=== PATIENT | female | born 1980 | race Caucasian/White ===

== ENCOUNTER 2024-12-30 13:07 | Emergency (ER) | payer BC, SELFPAY ==
--- NOTE | 2024-12-30 | ECG_ITS ---
Test Reason : SEIZURE LIKE ACTIVITY Blood Pressure : */* mmHG Vent. Rate : 69 BPM Atrial Rate : 69 BPM P-R Int : 202 ms QRS Dur : 98 ms QT Int : 414 ms P-R-T Axes : 73 65 60 degrees QTcB Int : 443 ms Normal sinus rhythm Possible Left atrial enlargement Borderline ECG No previous ECGs available Referred By: Generic ED Physician Electronically Signed By: Talha Scott
[2024-12-30 13:09] VITALS: BP 107/65; PULSE 70; O2SAT 98
[2024-12-30 13:24] VITALS: BP 110/75; PULSE 86; RESP 16; TEMP 37; O2SAT 100; BMI 23.3
[2024-12-30 13:45] VITALS: BP 123/65; PULSE 69; RESP 14; TEMP 36.8; O2SAT 99
[2024-12-30 13:54] LABS: MANUAL DIFF FLAG NO
[2024-12-30 13:58] LABS: Hematocrit 34.2 % (37.0-47.0); Hemoglobin 11.5 g/dl (12.0-16.0); Imm Gran Abs Auto 0.02 X10*3/uL (0.00-0.03); Imm Gran Pct Auto 0.3 % (0.0-0.4); Lymphocytes Absolute Auto 0.5 X10*3/uL (1.2-4.9); Mean Corpuscular HGB Conc 33.6 g/dl (31.0-35.0); Mean Corpuscular Hemoglobin 30.7 pg (27.0-33.0); Mean Corpuscular Volume 91.4 fL (80.0-98.0); NRBC Abs Auto 0.000 X10*3/uL (0.0-0.012); NRBC Pct Auto 0.0 /100WBC (0.0-0.2); Platelet Count 161 X10*3/uL (160-400); Red Blood Count 3.74 X10*6/uL (4.20-5.50); White Blood Count 5.8 X10*3/uL (4.8-10.8)
--- NOTE | 2024-12-30 14:20 | ED_ITS ---
HPI - General Adult General Chief complaint: Weakness Stated complaint: SYNCOPE,?SZ,NO H/O SZ PER EMS Time Seen by Provider: 12/30/24 14:20 History of Present Illness ED Provider: Carroll HUBER narrative: The patient is an otherwise healthy 44-year-old woman. She has no significant past medical history. Her only medication is oral contraceptive. She has been feeling somewhat run down with cough and cold-type symptoms for about 2 or 3 days. Despite these symptoms she went to work today. While at work she did not feel very well and she left the office to go to her car. She thought she would try to take a nap in her car. She sat in her car with the air conditioning running. She called her to tell him that she was not feeling well. He suggested that perhaps she not returned to work. She then called her office. Apparently while she was trying to make the phone call she passed out and drop the phone. People from her office then ran out to check on her. She remembers hearing banging on the windshield when she woke up an open the door. The office makes were very concerned that she had passed out in the car and that they had had to bang on the windows to wake her up. They called 911 and she was brought to the hospital. There was no tongue biting. No incontinence. The patient denies any significant headache. No neck stiffness. No chest pain. No shortness of breath. No pain with breathing. No pain or swelling in her legs. Here in the emergency room she feels relatively well. Related Data Allergies Allergy/AdvReac Type Severity Reaction Status Date / Time No Known Allergies Allergy Verified 12/30/24 13:33 Review of Systems 2 Review of Systems: Yes all other systems are reviewed and are negative [facility] Social History Social History Advance Directives: No Advance Directives Information Provided: Yes Do you have a plan to hurt others: No Plan Physical Exam ED Vital Signs: Vital Signs - 24 hr 12/30/24 13:24 12/30/24 13:45 Temperature 98.6 F 98.3 F Pulse Rate 86 69 Respiratory Rate 16 14 Blood Pressure 110/75 123/65 Pulse Oximetry 100 99 Oxygen Delivery Method Room Air Room Air BMI result Body Mass Index 23.3 Const Other: The patient looks as if she is an ordinarily very healthy 44-year-old. She is awake, alert, pleasant, cooperative. She does not appear ill or in distress at all. Orientation/consciousness: patient oriented x3 HENCA Other: The face is symmetrical. ?Mucous membranes moist. Eyes Other: Pupils are round equal, conjunctivae are clear, extraocular movements intact Neck Other: Her neck is entirely supple. Neck: Yes normal visual inspection, Yes full ROM and Yes no meningeal signs Resp Effort & Inspection: normal respiratory effort Auscultation: clear to auscultation bilaterally Cardio Rate: regular rate Rhythm: regular rhythm Heart sounds: S1 normal heart sound present and S2 normal heart sound present GI Other: Abdomen is soft and nontender General: Yes no CVA tenderness Back/Spine/Pelvis Back: no CVA tenderness Skin Other: The skin is dry and unremarkable General skin exam: no rashes or lesions noted Neuro General: patient oriented x3, no meningeal signs, no focal motor deficits and CN's II-XI intact bilaterally Extrem Other: There is no calf swelling or tenderness. No asymmetry. No peripheral edema. Medical Decision Making Medical Decision Making [facility] Narrative: The patient is a 44-year-old woman who experienced what sounds like a syncopal episode while resting in her car. She has been feeling unwell for about 48 hours with very nonspecific respiratory symptoms. There was no tongue biting or incontinence to suggest a seizure was likely. She has no headache or neck stiffness to suggest any kind of acute intracranial process. She has no chest pain or shortness of breath or pleuritic pain to suggest a pulmonary embolism or cardiac process. Her EKGs unremarkable. Her vital signs are normal. The patient had basic labs done. Her COVID is positive. I think that the patient has COVID an that the COVID made her feel somewhat unwell and predispose her to a syncopal episode. My suspicion for a more ominous process is very low. She was told that she has COVID. She was reassured. She should stay out of work for 5 days. She will be discharged to isolate herself at home. Lab Data 12/30/24 13:51 12/30/24 13:51 Labs: Lab Results 12/30/24 Range/Units 13:51 WBC 5.8 (4.8-10.8) X10*3/uL RBC 3.74 L (4.20-5.50) X10*6/uL Hgb 11.5 L (12.0-16.0) g/dl Hct 34.2 L (37.0-47.0) % MCV 91.4 (80.0-98.0) fL MCH 30.7 (27.0-33.0) pg MCHC 33.6 (31.0-35.0) g/dl RDW 13.0 (11.0-16.0) % Plt Count 161 (160-400) X10*3/uL MPV 10.9 (9.4-12.3) fL Immature Gran % (Auto) 0.3 (0.0-0.4) % Neut % (Auto) 86.0 H (45-73) % Lymph % (Auto) 9.3 L (20-40) % [place] % (Auto) 3.8 (2-11) % Eos % (Auto) 0.3 (0-4) % Baso % (Auto) 0.3 (0-2) % Lymph # (Auto) 0.5 L (1.2-4.9) X10*3/uL [place] # (Auto) 0.2 (0.1-1.2) X10*3/uL Eos # (Auto) 0.0 (0.0-0.4) X10*3/uL Baso # (Auto) 0.0 (0.0-0.2) X10*3/uL Abs Immat Gran (auto) 0.02 (0.00-0.03) X10*3/uL Absolute Neuts (auto) 5.0 (2.0-8.3) x10*3/uL Absolute Nucleated RBC 0.000 (0.0-0.012) X10*3/uL Nucleated RBC % (auto) 0.0 (0.0-0.2) /100WBC Independent Interpretation I performed an independent interpretation of an: EKG Interpretation: EKG at 13:43 shows normal sinus rhythm at 69 beats per minute. No acute ischemic changes. I felt it was an unconcerning EKG. Discharge Plan Discharge Clinical Impression: COVID, Syncope Patient Disposition: Home, Self-Care Instructions: COVID-19 (Coronavirus Disease 2019) (ED) Additional Instructions: You had a fainting episode today. You have also tested positive for COVID today. I suspect your fainting episode happened because you are ill with COVID. Your other testing today is reassuring. Please plan on resting and taking it easy today. Try to isolate yourself as much as you are able to from other people to prevent the spread of COVID. You may use ibuprofen and acetaminophen as needed for discomfort or other symptoms related to COVID. Drink lot of fluid. You should isolate yourself for 5 days. This would mean that you should be able to return to work on Thursday if you are feeling well. Please plan on making a follow up appointment with your regular doctor in the next few weeks to discuss this episode further. Return to the emergency room if significantly worse. Referrals: Glendy Haddad NP [Primary Care Provider, Internal Medicine] Stand Alone Forms: Work/School Release Print Language: Khmer
[2024-12-30 14:22] LABS: COVID-19 Test Positive (Negative); IDNOW Serial# 55D5AD1C
[2024-12-30 14:23] LABS: Alanine Aminotransferase 13 U/L (0-31); Albumin Level 3.7 g/dL (3.5-5.0); Alkaline Phosphatase 55 U/L (39-117); Anion Gap 10 (12-20); Aspartate Amino Transferase 20 U/L (5-31); Blood Urea Nitrogen 14 mg/dL (9-16); Calcium 7.8 mg/dL (8.4-10.2); Carbon Dioxide 24 mmol/L (22-29); Chloride 109 mmol/L (96-108); Creatinine Clr Calc Pharmacy 86.7; Estimated Glomerular Filt Rate > 60; Potassium 3.8 mmol/L (3.3-5.1); Sodium 139 mmol/L (135-145); Total Protein 6.6 g/dL (6.5-8.0)
[2024-12-30 14:32] LABS: IDNOW Serial# 58CA691E; Influenza B2 Negative (Negative)
[2024-12-30 14:47] VITALS: BP 123/65; PULSE 69; RESP 14; TEMP 36.8; O2SAT 99
[2024-12-30 14:53] VITALS: BP 123/65; PULSE 69; RESP 14; TEMP 36.8; O2SAT 99
== END 2024-12-30 14:55 | disposition home or self-care (01) ==
PROVIDERS: Emergency Provider Emergency Medicine; PCP Nurse Practitioner Family
DX: U07.1 COVID-19 (principal)
CPT/HCPCS: 80053; 84702; 85025; 87502; 87635; 93005; 99283; 99284

== ENCOUNTER → 2024-12-30 13:43 | Outpatient (BNV) | payer BC, SELFPAY | PROVIDERS: Emergency Provider Emergency Medicine; PCP Nurse Practitioner Family; Visit Provider Internal Medicine Cardiovascular Disease | DX: R56.9 Unspecified convulsions (principal) | CPT/HCPCS: 93010 ==